=== PATIENT | male | born 1940 | race African-American/Black ===

== ENCOUNTER → 2016-11-18 | Day surgery (SDC) | payer MEDICARE ==
[~2016-11-18] MED LIST: AMLO5TAB2 PO; ASPI81TA50 PO; FLUO20CA8 PO; HYDR-2762 PO; IV RINGERS,LACTATED 1000ML 1,000 ML IV SCH; LIDOCAINE 1% 1 ML SYRINGE. ID PRN; LOSA50TA6 PO; METF500T4 PO; MULT-658 PO; OMEG1CAP28 PO; ONDANSETRON PF 4 MG/2 ML VIAL. IV PRN; PHENYLEPHRINE in 0.9% NACL PF 1 MG/10 ML DISP.SYRIN. IV ONE; PROCHLORPERAZINE 10 MG/2 ML VIAL. IV PRN; PROPOFOL 20 ML IV ONE; SIMV10TA3 PO; TAMS0.4C2 PO; fentaNYL PF VIAL 100 MCG/2 ML VIAL IV PRN
--- NOTE | 2016-11-18 09:07 | PDOC1 ---
HISTORY & PHYSICAL H&P Lala Rothman [id number] 1940 11/04/2016 02:10 PM 07/20 [employer] [facility] [address] [place] [id number] Ph. [phone] Patient: Lala Rothman Date of : 1940 Date: 11/04/2016 2:10 PM Visit Type: Office Visit This 76 year old male presents for H/o colorectal polyp. History of Present Illness: 1. H/o colorectal polyp Prior screening: colonoscopy. Risk Factors: h/o colon polyp. Pertinent negatives include abdominal pain, change in bowel habits, change in stool caliber, constipation, decreased appetite, diarrhea, melena, nausea, rectal bleeding, vomiting, weight gain and weight loss. Additional information: No family history of colon cancer, No family history of Crohn's/colitis, No NSAID/ ASA use and Patient had colonic polyp removed 2013. Here for repeat colonoscopy. INTAKE COMMENTS: Intake Comments: Nurse Note: the pt is here today due to a h/o colon polyps in 2013. The pt states that he is having some rectal itching. 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 Lung cancer metastatic 03/07/2014 Drug allergy 04/29/2013 Benign essential hypertension 02/12/2011 Hyperlipidemia 02/12/2011 Gastroesophageal reflux disease 02/12/2011 Medicare advantage coverage 05/30/2013 Shoulder tendinitis 01/04/2014 Type 2 diabetes mellitus well controlled 02/12/2011 Lung cancer 05/30/2013 Obesity 05/17/2012 History of benign neoplasm of brain 03/15/2012 PAST MEDICAL/SURGICAL HISTORY (Detailed) Disease/disorder Onset Date Management Date Comments Right shoulder surgery Colonoscopy 04/2004 Colonoscopy 03/2001 brain tumor 2013 chemo+Radiation Therapy 2013 Colonic polyps 09/27/2013 colonoscopy with biopsy 09/27/2013 Depression Diabetes Diverticulosis 09/27/2013 History of back and neck pain Hyperlipidemia hypertension internal hemorrhoids 09/27/2013 lung cancer cancer Tuberculosis 2006 DIAGNOSTICS HISTORY: Test Ordered Interpretation Result completed Colonoscopy 12/15/2008 Tubular adenoma x2 01/02/2009 Colonoscopy 09/07/2013 abnormal Imp: diverticulosis of the colon, multiple colonic polyps(bx), internal hemorrhoids. BX: fragments of tunular adenoma, there is evidence of high grade dysplasia or malignancy. Fragment of tuular adenoma, there is no eveidence of high grade dysplasia or malignancy. 09/27/2013 Test Ordered Ordering Comments Modifier Colonoscopy 12/15/2008 pt given written and verbal instructions Colonoscopy 09/07/2013 Medications (Active): Started Medication Directions Instruction Stopped 10/02/2016 amlodipine 5 mg tablet TAKE 1 TABLET BY MOUTH EVERY DAY 09/24/2016 Aspir-81 81 mg tablet,delayed release take 1 tablet (81MG) by oral route every day OTC Fish Oil 1,000 mg Cap 10/02/2016 Flomax 0.4 mg capsule take 1 capsule (0.4MG) by oral route every day 1/2 hour following the same meal each day 10/02/2016 fluoxetine 20 mg capsule TAKE 1 CAPSULE BY MOUTH EVERY DAY IN THE MORNING 10/19/2016 LOSARTAN 50MG TABLETS TAKE 1 TABLET BY MOUTH EVERY DAY 10/09/2016 metformin 500 mg tablet TAKE 1 TABLET BY ORAL ROUTE 2 TIMES EVERY DAY WITH MORNING AND EVENING MEALS 10/09/2016 simvastatin 10 mg tablet TAKE 1 TABLET BY MOUTH EVERY DAY IN THE EVENING Allergies: Ingredient Reaction Medication Name Comment LIZZIE INHIBITORS angio edema lips CODEINE Rash/Itching REVIEW OF SYSTEMS System Neg/Pos Details Constitutional Negative Chills, fever, malaise, weight gain and weight loss. ENMT Negative Sore throat. Eyes Negative Double vision. Respiratory Negative Dyspnea and wheezing. Cardio Negative Chest pain and irregular heartbeat/palpitations. GI Positive See HPI. GI Negative Abdominal pain, change in bowel habits, change in stool caliber, constipation, decreased appetite, diarrhea, melena, nausea, see HPI, rectal bleeding and vomiting. Negative Dysuria and hematuria. Endocrine Negative Cold intolerance and heat intolerance. Psych Negative Anxiety. Integumentary Negative Hives and rash. MS Negative Joint pain. Mitch/Lymph Negative Easy bleeding and easy bruising. Allergic/Immuno Negative Food allergies. VITAL SIGNS Time BP mm/Hg Pulse /min Resp /min Temp F Ht ft Ht in Ht cm Wt lb Wt kg BMI kg/ m2 BSA m2 O2 Sat% 2:12 PM 124/64 86 97.6 5.0 9.00 175.26 193.80 87.906 28.62 98 Time Measured by 2:12 PM Vane Cao PHYSICAL EXAM: Exam Findings Details Constitutional Normal Well developed. Eyes Normal Conjunctiva - Right: Normal, Left: Normal. Sclera - Right: Normal, Left: Normal. Nasopharynx Normal Lips/teeth/gums - Normal. Neck Exam Normal Inspection - Normal. Thyroid gland - Normal. Respiratory Normal Inspection - Normal. Auscultation - Normal. Cardiovascular Normal Regular rate and rhythm. No murmurs, gallops, or rubs. Vascular Normal Pulses - Carotids: Normal, Femoral: Normal, Dorsalis pedis: Normal. Abdomen Normal Inspection - Normal. Anterior palpation - No guarding. No abdominal tenderness. No hepatic enlargement. No splenic enlargement. No hernia. No ascites. Skin Normal Inspection - Normal. Extremity Normal No edema. Psychiatric * Oriented to time, place, person and situation. Psychiatric Normal Appropriate mood and effect. The patient was checked out at 2:12 PM by Vane Cao. Assessment/Plan # Detail Type Description 1. Assessment History of colon polyps (Z86.010). Patient Plan schedule colonoscopy at Plan Orders Further diagnostic evaluations ordered today include(s) Colonoscopy to be performed today. He is to schedule a follow-up visit with Abi Franz MD upon completion of work-up Electronically signed by: Abi Franz MD 11/05/2016 06:23 AM Document generated by: Abi Franz 11/05/2016 06:23 AM Kory Abraham MD, Family Practice; Shahab Harding MD Internal Medicine; Ventura Baptiste MD, Internal Medicine; Kat Franz MD Internal Medicine; Abi Franz MD, Gastroenterology; Francis Pool MD, Rheumatology, S. Sawyer Gilbert, Physical Medicine/Rehab Nico Warner APRN ------ 11/18/16 Patient seen and examined. No change in H&P. ABI FRANZ MD November 18, 2016 09:07
--- NOTE | 2016-11-18 10:36 | PDOC4 ---
GI OP Report - Dr. Aleman Date/Time DATE: 11/18/16 TIME: 10:28 Attending Physician Pratik Aleman MD Referring Physician Indications Personal history of colonic polyps Pre-Op See the Anesthesia note for documentation of the administered medications Procedures Colonoscopy+polypectomy and bx Findings - Diverticulosis in the sigmoid colon. - One 8 mm polyp in the sigmoid colon. Resected and retrieved. - One 5 mm polyp in the sigmoid colon. Biopsied. - Hemorrhoids. Plan - Discharge patient to home. - Patient has a contact number available for emergencies. The signs and symptoms of potential delayed complications were discussed with the patient. Return to normal activities tomorrow. Written discharge instructions were provided to the patient. - Resume regular diet. - Continue present medications. - Await pathology results. - Repeat colonoscopy in 3 - 5 years for surveillance based on pathology results. - Return to my office in 2 weeks. PRATIK ALEMAN MD November 18, 2016 10:36
[2016-11-18 11:15] VITALS: BP 149/68
== END | disposition home or self-care (01) ==
LOC: ENDOS 08:48
PROVIDERS: ATTEND Internal Medicine Gastroenterology
DX: D12.5 Benign neoplasm of sigmoid colon (principal); K57.30 Diverticulosis of large intestine without perforation or abscess without bleeding; E78.00 Pure hypercholesterolemia, unspecified; I10 Essential (primary) hypertension; M19.90 Unspecified osteoarthritis, unspecified site; E11.9 Type 2 diabetes mellitus without complications; F32.9 Major depressive disorder, single episode, unspecified; Z87.891 Personal history of nicotine dependence
CPT/HCPCS: 45380; 88305; 99156; J2370; J2704